=== PATIENT | male | born 1985 | race African-American/Black ===

== ENCOUNTER → 2023-11-22 | Emergency (ER) | payer SELFPAY ==
[~2023-11-22] MED LIST: FAMOTIDINE 20 MG/2 ML VIAL IV ONE; MORPHINE 4 MG/ML SYR ONE; NA CHLORIDE 0.9% 1,000 ML ONE; ONDANSETRON 4 MG/2 ML VIAL ONE
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
[2023-11-22 14:56] LABS: Absolute Lymphocytes (CBC) 2.7 K/uL (0.7-4.9); Hematocrit 46.9 % (39.6-49.0); Lymphocytes % 21.9 % (15.3-44.8); MCV 85.1 fL (80-100); MPV 10.1 fL (7.6-11.3); Platelets 296 thou/uL (152-406); RBC Red Blood Cell Count 5.51 M/uL (4.33-5.43)
[2023-11-22 15:18] LABS: Bilirubin Total 1.5 mg/dL (0.2-1.0); Potassium 3.7 mEq/L (3.5-5.1); Protein, Total 7.7 g/dL (6.4-8.2)
[2023-11-22 15:45] LABS: Specific Gravity 1.011 (1.005-1.030); Urine Bacteria None Seen /HPF (<20); Urine Bilirubin NEGATIVE (Negative); Urine Blood Negative (Negative); Urine Clarity Clear (Clear); Urine Color Light-Yellow (Yellow); Urine Glucose NEGATIVE (Negative); Urine Mucus Slight /HPF (None Seen); Urine Protein NEGATIVE (Negative); Urine RBC <5 /HPF (None Seen); Urine Urobilinogen Normal (Normal); Urine pH 6.5 (5.0-7.0)
--- NOTE | 2023-11-22 17:21 | RAD REPORT ---
EXAM DESCRIPTION: CT - Abdomen Pelvis W Contrast - 11/22/2023 3:34 pm CLINICAL HISTORY: ABD PAIN COMPARISON: No comparisons TECHNIQUE: Thin cut axial CT imaging of the abdomen and pelvis was performed following intravenous a dministration of 100 mL Isovue 300. Multiplanar reformats were generated and reviewed. All CT scans are performed using dose optimization technique as appropriate and may include automated exposure control or mA/KV adjustment according to patient size. FINDINGS: No suspicious findings in the lung bases. The liver shows diffuse parenchymal hypoattenuation suggesting steatosis. Geographic region of relati vely increased density adjacent to the gallbladder suggestive of fatty sparing. Spleen, adrenal gland s, and pancreas show no suspicious findings. Gallbladder and biliary tree are also without suspicious finding. Symmetric renal function is seen with no hydronephrosis or suspicious renal mass. Mild segmental distal small bowel fluid distention. No evidence of a transition point. No bowel wall thickening. The appendix is retrocecal and is unremarkable in appearance although it is at the upper limit of normal in caliber. No free air, free fluid or inflammatory stranding. Wide necked umbilical hernia containing fat and a short segment of nondistended small bowel. No mass or bulky lymphadenopat hy. The urinary bladder is without significant finding. No suspicious bony findings. IMPRESSION: Mild segmental distal small bowel fluid distention, may reflect early ileus or enteritis . Diffuse hepatic steatosis. Umbilical hernia containing fat and nondistended short segment of small bowel.
--- NOTE | 2023-11-22 17:43 | EDPHYS ---
Physician Documentation [facility] Name: Junaid Gallegos Age: 37 yrs Sex: Male : 1985 Arrival Date: 11/22/2023 Time: 13:55 Bed 5 Private MD: ED Physician Tyler Quintero HPI: 11/22 14:44 This 37 yrs old Black Male presents to ER via Ambulatory with complaints of ms3 Nausea/Vomiting/Diarrhea, Flank Pain. 14:44 37-year-old male with no past medical history presents to the emergency department for ms3 left flank pain that has been ongoing for 2 weeks. Patient states pain is 10/10. Patient denies alleviating or inciting factors. Patient endorses decreased p.o. intake. Historical: - Allergies: 14:11 No Known Allergies; ko1 - Home Meds: 14:11 None [Active]; ko1 - PMHx: 14:11 None; ko1 - PSHx: 14:11 None; ko1 - Immunization history:: Adult Immunizations up to date. - Social history:: Smoking status: Patient denies any tobacco usage or history of. ROS: 14:44 Constitutional: Negative for fever, and chills. Neck: Negative for injury, pain, and ms3 swelling, Cardiovascular: Negative for chest pain, and palpitations. Respiratory: Negative for shortness of breath, cough, wheezing, and pleuritic chest pain, 14:44 MS/Extremity: Negative for injury and deformity, Skin: Negative for injury, rash, and discoloration, 14:44 Abdomen/GI: Positive for abdominal pain, 14:44 All other systems are negative, Exam: 14:44 Constitutional: This is a well developed, well nourished patient who is awake, alert, ms3 and in no acute distress. Head/Face: Normocephalic, atraumatic. Neck: Trachea midline, no cervical lymphadenopathy. Supple, full range of motion without nuchal rigidity, or vertebral point tenderness. No Meningismus. Chest/axilla: Normal chest wall appearance and motion. Nontender with no deformity. Cardiovascular: Regular rate and rhythm with a normal S1 and S2. No gallops, murmurs, or rubs. Normal PMI, no JVD. No pulse deficits. Respiratory: Lungs have equal breath sounds bilaterally, clear to auscultation and percussion. No rales, rhonchi or wheezes noted. No increased work of breathing, no retractions or nasal flaring. 14:44 Skin: Warm, dry with normal turgor. Normal color with no rashes, no lesions, and no evidence of cellulitis. MS/ Extremity: Pulses equal, no cyanosis. Neurovascular intact. Full, normal range of motion. 14:44 Abdomen/GI: Inspection: abdomen appears normal, Bowel sounds: normal, Palpation: moderate abdominal tenderness, in the left upper quadrant, Vital Signs: 14:10 BP 139 / 101; Pulse 85; Resp 16; Temp 98.3; Pulse Ox 100% ; ko1 15:43 BP 144 / 97; Pulse 66; Resp 16 S; Pulse Ox 99% on R/A; kc6 17:02 BP 150 / 90; Pulse 60; Resp 16 S; Pulse Ox 99% on R/A; kc6 MDM: 14:23 Patient medically screened. ms3 14:44 Differential diagnosis: Nonspecific abd pain, gastritis, viral gastroenteritis. ms3 17:30 Data reviewed: vital signs, nurses notes, lab test result(s), radiologic studies, CT ms3 scan, and as a result, I will discharge patient. I considered the following discharge prescriptions or medication management in the emergency department Medications were administered in the Emergency Department. See MAR. Counseling: I had a detailed discussion with the patient and/or guardian regarding the historical points, exam findings, and any diagnostic results supporting the discharge/admit diagnosis, lab results, radiology results, the need for outpatient follow up, to return to the emergency department if symptoms worsen or persist or if there are any questions or concerns that arise at home. Response to treatment: the patient's symptoms have mildly improved after treatment, and as a result, I will discharge patient. Special discussion: Based on the patient's Hx, exam, and Dx evaluation, there is no indication for emergent surgery or inpatient Tx. It is understood by the patient/guardian that if the Sx's persist or worsen they need to return immediately for re-evaluation. ED course: On reevaluation patient symptoms improved, patient is alert and oriented x 4, no apparent distress, nontoxic-appearing, speaking full sentences, without emesis. Patient to follow-up with primary care physician in 2 to 3 days. Patient understands and agrees with plan. All questions were answered. Return precautions discussed include worsening symptoms, or any other concerns. 11/22 14:25 Order name: CBC with Diff; Complete Time: 15:55 ms3 11/22 14:25 Order name: CMP; Complete Time: 15:55 ms3 11/22 14:25 Order name: Lipase; Complete Time: 15:55 ms3 11/22 14:25 Order name: Urinalysis w/ reflexes; Complete Time: 15:55 ms3 11/22 14:25 Order name: CT Abd/Pelvis - IV Contrast Only; Complete Time: 17:24 ms3 11/22 14:25 Order name: IV Saline Lock; Complete Time: 14:30 ms3 11/22 14:25 Order name: Labs collected and sent; Complete Time: 14:30 ms3 Administered Medications: 14:38 Drug: NS 0.9% IV 1000 ml IV at 1 bolus Per protocol; 1000 mL bolus Route: IV; Rate: 1 as6 bolus; Site: right antecubital; 17:03 Follow up: Response: No adverse reaction; IV Status: Completed infusion; IV Intake: kc6 1000ml 14:38 Drug: Famotidine IVP 20 mg IVP once; dilute with 10 mL 0.9% NaCl; give over 2 minutes as6 Route: IVP; Site: right antecubital; 17:03 Follow up: Response: No adverse reaction kc6 14:38 Drug: Ondansetron IVP 4 mg IVP once; over 2 minutes Route: IVP; Site: right antecubital;as6 17:03 Follow up: Response: No adverse reaction kc6 15:18 Drug: morphine IVP or IV 4 mg IVP once over 4 mins Route: IVP; Infused Over: 4 mins; kc6 Site: right antecubital; 17:03 Follow up: Response: No adverse reaction; Pain is decreased; RASS: Alert and Calm (0) kc6 Disposition Summary: 11/22/23 17:42 Discharge Ordered Notes: Location: Home ms3 Condition: Stable ms3 Diagnosis - Upper abdominal pain, unspecified ms3 - Nausea with vomiting, unspecified ms3 Followup: ms3 - With: Stinson, Je, DO - When: 2 - 3 days - Reason: Recheck today's complaints Discharge Instructions: - Discharge Summary Sheet ms3 - Abdominal Pain, Adult ms3 - Nausea and Vomiting, Adult ms3 Forms: - Family Work Release ap3 - Medication Reconciliation Form ms3 - Thank You Letter ms3 - Antibiotic Education ms3 - Prescription Opioid Use ms3 - Patient Portal Instructions ms3 - Leadership Thank You Letter ms3 Prescriptions: - ondansetron 4 mg Oral Tablet,disintegrating - take 1 tablet ORAL route every 8 hours; 15 tablet; Refills: 0, Product ms3 Selection Permitted Signatures: Dispatcher [employer] EDMS Tyler Quintero, DO ms3 Lazaro Santos RN RN as6 Jacinta Vazquez RN RN kc6 Denice Maciel RN RN ko1
--- NOTE | 2023-11-22 17:43 | ER ---
Nurse's Notes [facility] Name: Junaid Gallegos Age: 37 yrs Sex: Male : 1985 Arrival Date: 11/22/2023 Time: 13:55 Bed 5 Private MD: Diagnosis: Upper abdominal pain, unspecified;Nausea with vomiting, unspecified Presentation: 11/22 14:10 Chief complaint: Patient states: Left flank/abdominal pain for 2 weeks, got worse this ko1 morning, also nausea and vomiting. Coronavirus screen: At this time, the client does not indicate any symptoms associated with coronavirus-19. Ebola Screen: No symptoms or risks identified at this time. Initial Sepsis Screen: Does the patient meet any 2 criteria? No. Patient's initial sepsis screen is negative. Does the patient have a suspected source of infection? No. Patient's initial sepsis screen is negative. Risk Assessment: Do you want to hurt yourself or someone else? Patient reports no desire to harm self or others. Onset of symptoms is unknown. 14:10 Method Of Arrival: Ambulatory ko1 14:10 Acuity: AKHIL 3 ko1 Triage Assessment: 14:11 General: Appears in no apparent distress. uncomfortable, Behavior is calm, cooperative, ko1 appropriate for age. Pain: Complains of pain in anterior aspect of left lateral abdomen and left upper quadrant. GI: Reports nausea, vomiting. Historical: - Allergies: 14:11 No Known Allergies; ko1 - Home Meds: 14:11 None [Active]; ko1 - PMHx: 14:11 None; ko1 - PSHx: 14:11 None; ko1 - Immunization history:: Adult Immunizations up to date. - Social history:: Smoking status: Patient denies any tobacco usage or history of. Screenin:41 [facility] ED Fall Risk Assessment (Adult) History of falling in the last 3 months, kc6 including since admission No falls in past 3 months (0 pts) Confusion or Disorientation No (0 pts) Intoxicated or Sedated No (0 pts) Impaired Gait No (0 pts) Mobility Assist Device Used No (0 pt) Altered Elimination No (0 pt) Score/Fall Risk Level 0 - 2 = Low Risk. Abuse screen: Denies threats or abuse. Denies injuries from another. Nutritional screening: No deficits noted. Tuberculosis screening: No symptoms or risk factors identified. Assessment: 14:42 General: Appears in no apparent distress. uncomfortable, well groomed, well developed, kc6 Behavior is calm, cooperative, appropriate for age. Pain: Complains of pain in left upper quadrant and left lower quadrant Pain does not radiate. Pain currently is 10 out of 10 on a pain scale. Neuro: Level of Consciousness is awake, alert, obeys commands, Oriented to person, place, time, situation, Appropriate for age. Cardiovascular: Capillary refill < 3 seconds. Respiratory: Airway is patent Trachea midline Respiratory effort is even, unlabored, Respiratory pattern is regular, symmetrical. GI: Abdomen is flat, non-distended, Bowel sounds present X 4 quads. Abd is soft X 4 quads Abdomen is tender to palpation in left upper quadrant and left lower quadrant Reports nausea, vomiting, Patient currently denies diarrhea. : No signs and/or symptoms were reported regarding the genitourinary system. EENT: No signs and/or symptoms were reported regarding the EENT system. Derm: No signs and/or symptoms reported regarding the dermatologic system. Skin is intact, is healthy with good turgor, Skin is pink, warm \T\ dry. Musculoskeletal: No signs and/or symptoms reported regarding the musculoskeletal system. Circulation, motion, and sensation intact. Capillary refill < 3 seconds, Range of motion: intact in all extremities. 15:43 Reassessment: Patient appears in no apparent distress at this time. No changes from kc6 previously documented assessment. Patient and/or family updated on plan of care and expected duration. Pain level reassessed. Patient is alert, oriented x 3, equal unlabored respirations, skin warm/dry/pink. 17:02 Reassessment: Patient appears in no apparent distress at this time. No changes from kc6 previously documented assessment. Patient and/or family updated on plan of care and expected duration. Pain level reassessed. Patient is alert, oriented x 3, equal unlabored respirations, skin warm/dry/pink. Vital Signs: 14:10 BP 139 / 101; Pulse 85; Resp 16; Temp 98.3; Pulse Ox 100% ; ko1 15:43 BP 144 / 97; Pulse 66; Resp 16 S; Pulse Ox 99% on R/A; kc6 17:02 BP 150 / 90; Pulse 60; Resp 16 S; Pulse Ox 99% on R/A; kc6 ED Course: 13:56 Patient arrived in ED. rg4 13:57 Tyler Qunitero DO is Attending Physician. ms3 14:11 Triage completed. ko1 14:11 Arm band placed on right wrist. Patient placed in an exam room, on a stretcher, on ko1 pulse oximetry, Patient notified of wait time. 14:19 Jacinta Vazquez, RN is Primary Nurse. kc6 14:30 CBC with Diff Sent. bc6 14:30 CMP Sent. bc6 14:30 Lipase Sent. bc6 14:30 Inserted saline lock: 20 gauge in right antecubital area, using aseptic technique. bc6 Blood collected. 14:41 Patient has correct armband on for positive identification. Bed in low position. Call kc6 light in reach. Side rails up X 1. Adult w/ patient. Client placed on continuous cardiac and pulse oximetry monitoring. NIBP monitoring applied. 14:41 Patient maintains SpO2 saturation greater than 95% on room air. kc6 15:36 CT Abd/Pelvis - IV Contrast Only In Process Unspecified. EDMS 17:42 Je Stinson DO is Referral Physician. ms3 18:02 Provided Education on: discharge instructions. ap3 18:02 No provider procedures requiring assistance completed. IV discontinued, intact, ap3 bleeding controlled, No redness/swelling at site. Pressure dressing applied. Administered Medications: 14:38 Drug: NS 0.9% IV 1000 ml IV at 1 bolus Per protocol; 1000 mL bolus Route: IV; Rate: 1 as6 bolus; Site: right antecubital; 17:03 Follow up: Response: No adverse reaction; IV Status: Completed infusion; IV Intake: kc6 1000ml 14:38 Drug: Famotidine IVP 20 mg IVP once; dilute with 10 mL 0.9% NaCl; give over 2 minutes as6 Route: IVP; Site: right antecubital; 17:03 Follow up: Response: No adverse reaction kc6 14:38 Drug: Ondansetron IVP 4 mg IVP once; over 2 minutes Route: IVP; Site: right antecubital;as6 17:03 Follow up: Response: No adverse reaction kc6 15:18 Drug: morphine IVP or IV 4 mg IVP once over 4 mins Route: IVP; Infused Over: 4 mins; kc6 Site: right antecubital; 17:03 Follow up: Response: No adverse reaction; Pain is decreased; RASS: Alert and Calm (0) kc6 Medication: 18:03 VIS not applicable for this client. ap3 Intake: 17:03 IV: 1000ml; Total: 1000ml. kc6 Outcome: 17:42 Discharge ordered by . ms3 18:02 Discharged to home ambulatory, with family, ap3 18:02 Condition: good 18:02 Discharge instructions given to patient, Instructed on discharge instructions, follow up and referral plans. medication usage, Demonstrated understanding of instructions, follow-up care, medications, Prescriptions given X 1, 18:03 Patient left the ED. ap3 Signatures: Dispatcher [employer] EDMS Edie Houston rg4 Palmira Pathak RN RN ap3 Tyler Quintero, DO DO ms3 Lazaro Santos RN RN [id number] Jacinta Vazquez RN RN kc6 Denice Maciel RN RN ko1 Ana Clay 6
[2023-11-23 11:17] VITALS: BP 150/90; TEMP 98.3; O2SAT 99
== END ==
LOC: ER 13:55
DX: R10.10 Upper abdominal pain, unspecified (principal); R11.2 Nausea with vomiting, unspecified
CPT/HCPCS: 36415; 74177; 80053; 81001; 83690; 85025; J2405; J7030; Q9967